=== PATIENT | female | born 1980 | race African-American/Black ===

== ENCOUNTER 2020-04-15 08:08 | Emergency (ER) | payer BC ==
[~2020-04-15] VITALS: Ht 172.7 cm; Wt 67.1 kg
--- NOTE | 2020-04-15 08:10 | NUR ---
AAOX3, [address]IBRA [address], bystander called 911 d/t patient was seen walking in the middle of the street. RR is even and unlabored with NAD noted. Skin is warm and dry. Sitter at BS. Awaiting md for eval.
[2020-04-15 08:37] LABS: BASOPHILS # (AUTO) 0.1 /CMM (0.0-0.2); BASOPHILS % (AUTO) 0.7 % (0.0-2.0); EOSINOPHILS % (AUTO) 0.2 % (0.0-6.0); HEMATOCRIT 41 % (33-45); HEMOGLOBIN 13.6 g/dL (11.5-14.8); LYMPHOCYTES # (AUTO) 2.5 /CMM (0.8-4.8); LYMPHOCYTES % (AUTO) 18.6 % (20.0-44.0); MEAN CORPUSCULAR HGB CONC 33 g/dl (31.0-36.0); MEAN CORPUSCULAR VOLUME 94 fL (82-100); MONOCYTES # (AUTO) 0.9 /CMM (0.1-1.30); MONOCYTES % (AUTO) 6.4 % (2.0-12.0); NEUTROPHILS # (AUTO) 9.9 /CMM (1.8-8.9); NEUTROPHILS % (AUTO) 74.1 % (43.0-81.0); PLATELET COUNT (AUTO) 298 /CMM (150-450); RED BLOOD CELL COUNT(AUTO) 4.38 MIL/uL (4.0-5.2); WHITE BLOOD COUNT (AUTO) 13.4 K/uL (4.3-11.0)
[2020-04-15 08:49] LABS: CALCIUM, SERUM 9.5 mg/dL (8.5-10.1); CARBON DIOXIDE 23 mmol/L (21-32); CHLORIDE 103 mmol/L (98-107); CREATININE 0.8 mg/dL (0.6-1.3); GLUCOSE 104 mg/dL (74-106); SODIUM SERUM 139 mmol/L (136-145); UREA NITROGEN, BLOOD 17 mg/dL (7-18)
[2020-04-15 08:50] LABS: POTASSIUM 2.7 mmol/L (3.5-5.1)
[2020-04-15 08:55] LABS: ACETAMINOPHEN < 2 ug/ml (10-30); ALANINE AMINOTRANSFERASE 34 U/L (12-78); ALCOHOL, BLOOD < 3 mg/dL (0-0); ALKALINE PHOSPHATASE 90 U/L (46-116); ASPARTATE AMINOTRANSFERASE 54 U/L (15-37); BILIRUBIN,DIRECT 0.2 mg/dL (0.0-0.2); BILIRUBIN,TOTAL 1.2 mg/dL (0.2-1.0); TOTAL PROTEIN, SERUM 7.7 g/dL (6.4-8.2)
[2020-04-15] MEDS ORDERED: POTASSIUM CHLORIDE 20 MEQ TAB.PRT.SR PO ONE ×2 (09:00→09:05)
--- NOTE | 2020-04-15 09:14 | NUR ---
patient is refusing to give a urine sample, made aware.
--- NOTE | 2020-04-15 11:17 | NUR ---
ASSUMED PT CARE. 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 PT DENIED TO DE SUICIDAL NOR HOMICIDAL. PT IS AMBULATORY ON STEADY GAIT. CLEAR FOR DISCHARGE.
--- NOTE | 2020-04-15 11:25 | NUR ---
Patient discharged to home in stable condition. Written and verbal after care instructions given. Patient verbalizes understanding of instruction. Pt ambulatory with a steady gait
[2020-04-15 12:01] VITALS: BP 134/89
--- NOTE | 2020-04-15 15:59 | NUR ---
11AM This SW met with the patient at bedside for a homelessness consult per MYLENE Guido. Patient was alert and oriented x4. Patient was receptive to speaking with socially responsible investment adviser. Patient is a 39 year-old female. Patient was able to confirm date of and social security number on the face sheet. Patient gave this SW the following address as her residency [address] [place] [address]. When this SW asked if there was anyone else in the home patient looked away and remained quiet. This SW redirected the patient by calling out her name and asking if she was okay. 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 Patient refused to provide the caretakers name and number to this SW by stating Why does it matter? I am not giving it to you. SW redirected back to assessment questions asking if she had anyone, we could contact to inform them of her current location at [facility]. Patient gave this SW the name of Arnaldo, patient stated that Arnaldo is her boyfriend. Patient refused to provide a number for Arnaldo. Patient reports that she was working but is no longer working due to COVID. Patient denied reporting how she was financially supporting herself. SW offered resources on applying for general relief patient shook head side to side and stating, I do not want it. Patient reports no alcohol or drug use. Patient reports that she quit smoking but when asked to provide a timeline, patient looked at this SW with a confused affect and stated, I cannot remember. Patient denies auditory and visual hallucinations. Patient reports no history of mental illness. Patient denies suicidal and homicidal ideations. This SW to remain available for all needs regarding this patient.
--- NOTE | 2020-04-15 16:01 | NUR ---
11:15am This SW was made aware that the patient wanted to be discharged. SW spoke with the patient and the patient once more denied suicidal and homicidal ideations. This SW asked the patient if she could provide a phone number for a friend or family member for SW to call to notify that patient was going to be discharged. Patient mumbled the following number . This SW attempted to call this number, but this phone number was out of service. LAURA informed the patient that the ER Staff would let her leave if she dressed in her clothes. Patient was in agreement with this. Patient was discharged by ER staff.
== END 2020-04-15 12:02 | disposition home or self-care (01) ==
LOC: ER 08:18
DX: R46.1 Bizarre personal appearance (principal); Z59.0 Homelessness; Z88.0 Allergy status to penicillin
CPT/HCPCS: 36415; 80048; 80076; 80307; 80329; 84702; 85025; 99283; G0480

== ENCOUNTER 2020-11-13 22:19 | Emergency (ER) | payer BC ==
[~2020-11-13] VITALS: Ht 172.7 cm; Wt 67.1 kg
--- NOTE | 2020-11-13 22:20 | NUR ---
Pt bb RA and [employer] for bizarre behavior. Pt rcvd Versed 5mg im by EMS. No immediate signs of distress noted upon arrival. will cont to monitor pt.
[2020-11-13 22:34] VITALS: BP 144/103
--- NOTE | 2020-11-13 22:55 | NUR ---
napoleon nicole from facility. dr valentine aware.
== END 2020-11-14 02:10 | disposition left against medical advice (07) ==
LOC: ER 22:26
DX: R46.1 Bizarre personal appearance (principal); Z88.0 Allergy status to penicillin; Z59.0 Homelessness